=== PATIENT | female | born 1940 | race Caucasian/White ===

== ENCOUNTER → 2016-07-21 | Outpatient (CLI) | payer MEDICARE | END | disposition home or self-care (01) | LOC: CFH 13:25 | PROVIDERS: ATTEND Internal Medicine Cardiovascular Disease | DX: I08.3 Combined rheumatic disorders of mitral, aortic and tricuspid valves (principal); I37.1 Nonrheumatic pulmonary valve insufficiency; I51.7 Cardiomegaly; I65.23 Occlusion and stenosis of bilateral carotid arteries | CPT/HCPCS: 93306; 93880 ==

== ENCOUNTER 2018-09-27 12:44 | Outpatient (CLI) | payer MEDICARE | END 2018-09-27 23:59 | disposition home or self-care (01) | LOC: CVU 12:44 | PROVIDERS: ATTEND Internal Medicine Cardiovascular Disease | DX: I08.8 Other rheumatic multiple valve diseases (principal); I65.23 Occlusion and stenosis of bilateral carotid arteries; I10 Essential (primary) hypertension; R09.89 Other specified symptoms and signs involving the circulatory and respiratory systems | CPT/HCPCS: 93306; 93880 ==

== ENCOUNTER 2019-02-18 17:34 | Inpatient (IN) | payer MEDICARE ==
[~2019-02-18] VITALS: Ht 170.2 cm; Wt 61.0 kg
[2019-02-18] MEDS ORDERED: ACETAMINOPHEN 500 MG TABLET PO ONE (18:30)
[2019-02-18 18:37] LABS: BASOPHILS # (AUTO) 0.07 x10^3/uL (0-0.1); BASOPHILS % (AUTO) 1 % (0-1); EOSINOPHILS % (AUTO) 0 % (1-7); LYMPHOCYTES # (AUTO) 1.06 x10^3/uL (1-3.4); LYMPHOCYTES % (AUTO) 9 % (22-44); MD NO; MEAN CORPUSCULAR HEMOGLOBIN 29.4 pg (27.0-34.8); MEAN CORPUSCULAR HGB CONC 33.5 g/dL (32.4-35.8); MEAN CORPUSCULAR VOLUME 87.8 fL (80-100); MEAN PLATELET VOLUME 8.3 fL (7.4-10.4); MONOCYTES # (AUTO) 0.87 x10^3/uL (0.2-0.8); MONOCYTES % (AUTO) 7 % (2-9); NEUTROPHILS # (AUTO) 10.01 x10^3/uL (1.8-6.8); NEUTROPHILS % (AUTO) 83 % (42-75); PLATELET COUNT 117 x10^3/uL (130-400); RED BLOOD COUNT 4.39 x10^6/uL (3.82-5.3); RED CELL DISTRIBUTION WIDTH 13.2 % (9.6-15.2)
[2019-02-18] MEDS ORDERED: ACETAMINOPHEN 500 MG TABLET ONE (18:44)
[2019-02-18 18:46] LABS: ALBUMIN 3.3 g/dL (3.4-5.0); ANION GAP 7 mmol/L (5-15); CALCIUM 8.5 mg/dL (8.5-10.1); CHLORIDE 108 mmol/L (98-107); CREATININE 0.94 mg/dL (0.55-1.02)
--- NOTE | 2019-02-18 18:48 | NUR ---
TASK RN: PT MEDICATED ORDERED FOR PAIN. PT TRASNPORTED TO IMAGING VIA GURNEY.
--- NOTE | 2019-02-18 19:02 | NUR ---
PT TO IMAGING.
--- NOTE | 2019-02-18 19:16 | NUR ---
PT HERE S/P [facility]GLF TODAY AT 1030. PER FAMILY, PT LANDED ON L SIDE AND C/O L HIP PAIN. L LEG EXTERNALLY ROTATED AND BENT AT THE KNEE. PT HAS HX ALZHEIMERS SO PT IS AT BASELINE NEURO STATUS. PT DRESSED IN GOWN AND ATTACHED TO MONITOR. CALL LIGHT WITHIN REACH, ROOM AIR. NAD, FAMILY AT BEDSIDE.
--- NOTE | 2019-02-18 19:18 | NUR ---
PT BACK FROM IMAGING.
--- NOTE | 2019-02-18 19:36 | NUR ---
PT ASSISTED ON AND OFF BEDPAN, URINE SENT
--- NOTE | 2019-02-18 20:00 | NUR ---
MD AT BEDSIDE TO DISCUSS POC, PLAN TO ADMIT. PIV ESTABLISHED BY THIS RN.
--- NOTE | 2019-02-18 20:21 | NUR ---
REPORT GIVEN TO NEEL MARSH. PT TO TRANSFER TO INPATIENT STATUS.
[2019-02-18] MEDS ORDERED: LISINOPRIL (20:30)
[2019-02-18] MEDS ORDERED: ATORVASTATIN (20:30)
[2019-02-18] MEDS ORDERED: SYNTHROID (20:30)
[2019-02-18] MEDS ORDERED: DONEPEZIL (20:30)
[2019-02-18] MEDS ORDERED: PRAZOSIN (20:30)
[2019-02-18] MEDS ORDERED: MORPHINE SULFATE 4 MG/ML, 1ML IVPush PRN (20:30)
--- NOTE | 2019-02-18 20:30 | NUR ---
MED REC COMPLETED BY THIS RN.
[2019-02-18 20:52] VITALS: BP 180/77
[2019-02-18] MEDS ORDERED: HALOPERIDOL 1 MG TABLET PO PRN (22:00)
[2019-02-18] MEDS ORDERED: ONDANSETRON 2MG/ML, 2ML IVPush PRN (22:00)
[2019-02-18] MEDS ORDERED: morphine SULFATE 10 MG/ML, 1ML IVPush PRN (22:00)
[2019-02-18] MEDS ORDERED: LIDODERM 5% PATCH TD PRN (22:00)
[2019-02-18] MEDS ORDERED: BISACODYL 10 MG SUPP PR PRN (22:00)
[2019-02-18] MEDS: D5%-0.45NACL+KCL 20MEQ 1,000 ML IV SCH (22:30)
[2019-02-18] MEDS: ACETAMINOPHEN 325 MG TABLET PO PRN (22:51)
[2019-02-19 05:03] VITALS: BP 174/78
[2019-02-19 05:34] LABS: BASOPHILS # (AUTO) 0.04 x10^3/uL (0-0.1); BASOPHILS % (AUTO) 0 % (0-1); EOSINOPHILS # (AUTO) 0.21 x10^3/uL (0-0.4); EOSINOPHILS % (AUTO) 2 % (1-7); LYMPHOCYTES # (AUTO) 1.71 x10^3/uL (1-3.4); LYMPHOCYTES % (AUTO) 18 % (22-44); MD NO; MEAN CORPUSCULAR HEMOGLOBIN 28.6 pg (27.0-34.8); MEAN CORPUSCULAR HGB CONC 33.1 g/dL (32.4-35.8); MEAN CORPUSCULAR VOLUME 86.3 fL (80-100); MEAN PLATELET VOLUME 8.5 fL (7.4-10.4); MONOCYTES # (AUTO) 0.63 x10^3/uL (0.2-0.8); MONOCYTES % (AUTO) 7 % (2-9); NEUTROPHILS # (AUTO) 6.71 x10^3/uL (1.8-6.8); NEUTROPHILS % (AUTO) 72 % (42-75); PLATELET COUNT 107 x10^3/uL (130-400); RED BLOOD COUNT 4.53 x10^6/uL (3.82-5.3); RED CELL DISTRIBUTION WIDTH 13.3 % (9.6-15.2)
[2019-02-19 05:40] LABS: ANION GAP 5 mmol/L (5-15); CALCIUM 8.3 mg/dL (8.5-10.1); CHLORIDE 108 mmol/L (98-107); CREATININE 0.78 mg/dL (0.55-1.02)
[2019-02-19 05:42] LABS: INTERNATIONAL NORMALIZED RATIO 1.31 (0.93-1.1); PROTHROMBIN TIME 13.6 Seconds (9.6-11.5)
[2019-02-19] MEDS: ACETAMINOPHEN 325 MG TABLET PO PRN ×3 (05:49→15:12)
[2019-02-19] MEDS: METOPROLOL SUCCINATE 25 MG TAB.ER.24H PO SCH (05:49)
[2019-02-19] MEDS: LEVOTHYROXINE 200 MCG TABLET PO SCH (05:49)
[2019-02-19] MEDS: INSULIN LISPRO 100 UNITS/ML, PEN SQ-INSULIN SCH ×4 (06:28→23:23)
[2019-02-19 07:29] VITALS: BP 178/74
[2019-02-19] MEDS: hydrALAzine 20 MG/ML, 1ML IVPush PRN (08:09)
[2019-02-19] MEDS: PAROXETINE 10 MG TABLET PO SCH (08:10)
[2019-02-19] MEDS: ATORVASTATIN 80 MG TABLET PO SCH (08:10)
[2019-02-19] MEDS: LISINOPRIL 20 MG TABLET PO SCH (08:10)
[2019-02-19 08:30] VITALS: BP 155/65
[2019-02-19] MEDS: D5%-0.45NACL+KCL 20MEQ 1,000 ML IV SCH ×2 (09:40→23:06)
[2019-02-19] MEDS ORDERED: POTASSIUM CHLORIDE 20 MEQ TAB.ER.PRT PO ONE (10:30)
[2019-02-19 14:18] VITALS: BP 158/75
[2019-02-19] MEDS ORDERED: VANCOMYCIN 1,000 MG ONE (18:20)
[2019-02-19] MEDS ORDERED: FENTANYL PF 250 MCG/5ML ONE (18:41)
[2019-02-19] MEDS ORDERED: HYDROmorphone 2 MG/ML, 1ML IVPush PRN (19:00)
[2019-02-19] MEDS ORDERED: MORPHINE SULFATE 4 MG/ML, 1ML IVPush PRN (19:00)
[2019-02-19] MEDS ORDERED: MEPERIDINE/PF 25MG/ML,1ML IVPush PRN (19:00)
[2019-02-19] MEDS ORDERED: PROMETHAZINE 25 MG/ML, 1ML IV PRN (19:00)
[2019-02-19] MEDS ORDERED: FENTANYL PF 100 MCG/2ML IV PRN (19:00)
[2019-02-19] MEDS ORDERED: OXYcodone 5 MG/5 ML ORAL.SOL UDC PO PRN (19:00)
[2019-02-19] MEDS ORDERED: HALOPERIDOL 5 MG/ML IV PRN (19:00)
[2019-02-19] MEDS ORDERED: LABETALOL 5 MG/ML SYR. (IV ONLY) IV PRN (19:00)
[2019-02-19] MEDS ORDERED: HYDROcodone/APAP 7.5-325MG/15ML UDC PO PRN (19:00)
[2019-02-19] MEDS ORDERED: hydrALAzine 20 MG/ML, 1ML IV PRN (19:00)
[2019-02-19] MEDS ORDERED: ONDANSETRON 2MG/ML, 2ML ONE (19:02)
[2019-02-19] MEDS ORDERED: ROCURONIUM 10MG/ML,5ML ONE (19:02)
[2019-02-19] MEDS ORDERED: PROPOFOL 10 MG/ML, 20ML ONE (19:02)
[2019-02-19] MEDS ORDERED: PHENYLEPHRINE 10 MG/ML ONE (19:02)
[2019-02-19] MEDS ORDERED: SUGAMMADEX 200 MG/2 ML IVPush ONE (20:24)
[2019-02-19] MEDS ORDERED: OXYcodone 5 MG/5 ML ORAL.SOL UDC ONE (20:57)
[2019-02-19] MEDS: DONEPEZIL 10 MG TABLET PO SCH (22:00)
[2019-02-20 02:48] VITALS: BP 156/82
[2019-02-20] MEDS: CEFAZOLIN PMX 2GM/50ML 50 ML IVPB SCH ×2 (04:43→12:05)
[2019-02-20] MEDS: HALOPERIDOL 5 MG/ML IM PRN (05:36)
[2019-02-20] MEDS: LEVOTHYROXINE 200 MCG TABLET PO SCH ×2 (06:22→06:42)
[2019-02-20] MEDS: METOPROLOL SUCCINATE 25 MG TAB.ER.24H PO SCH ×2 (06:22→06:42)
[2019-02-20] MEDS: INSULIN LISPRO 100 UNITS/ML, PEN SQ-INSULIN SCH ×4 (07:39→20:23)
[2019-02-20 08:11] VITALS: BP 138/69
[2019-02-20 09:01] LABS: BASOPHILS # (AUTO) 0.09 x10^3/uL (0-0.1); BASOPHILS % (AUTO) 1 % (0-1); EOSINOPHILS # (AUTO) 0.06 x10^3/uL (0-0.4); EOSINOPHILS % (AUTO) 1 % (1-7); LYMPHOCYTES # (AUTO) 1.09 x10^3/uL (1-3.4); LYMPHOCYTES % (AUTO) 11 % (22-44); MD NO; MEAN CORPUSCULAR HEMOGLOBIN 28.6 pg (27.0-34.8); MEAN CORPUSCULAR HGB CONC 32.5 g/dL (32.4-35.8); MEAN CORPUSCULAR VOLUME 87.8 fL (80-100); MEAN PLATELET VOLUME 8.4 fL (7.4-10.4); MONOCYTES # (AUTO) 0.64 x10^3/uL (0.2-0.8); MONOCYTES % (AUTO) 6 % (2-9); NEUTROPHILS # (AUTO) 8.06 x10^3/uL (1.8-6.8); NEUTROPHILS % (AUTO) 81 % (42-75); PLATELET COUNT 101 x10^3/uL (130-400); RED BLOOD COUNT 3.96 x10^6/uL (3.82-5.3); RED CELL DISTRIBUTION WIDTH 13.5 % (9.6-15.2)
[2019-02-20] MEDS: PAROXETINE 10 MG TABLET PO SCH (09:14)
[2019-02-20] MEDS: MEMANTINE HCL 28 MG PO SCH (09:14)
[2019-02-20] MEDS: ATORVASTATIN 80 MG TABLET PO SCH (09:14)
[2019-02-20] MEDS: LISINOPRIL 20 MG TABLET PO SCH (09:14)
[2019-02-20 09:21] LABS: ANION GAP 5 mmol/L (5-15); CALCIUM 8.1 mg/dL (8.5-10.1); CHLORIDE 108 mmol/L (98-107)
[2019-02-20 09:22] LABS: CREATININE 0.79 mg/dL (0.55-1.02)
[2019-02-20] MEDS: D5%-0.45NACL+KCL 20MEQ 1,000 ML IV SCH ×2 (09:34→21:17)
[2019-02-20 14:25] VITALS: BP 151/77
[2019-02-20 19:40] VITALS: BP 175/79
[2019-02-20] MEDS: DONEPEZIL 10 MG TABLET PO SCH (20:20)
[2019-02-20] MEDS: ACETAMINOPHEN 325 MG TABLET PO PRN (20:20)
[2019-02-21 00:41] VITALS: BP 173/85
[2019-02-21] MEDS: hydrALAzine 20 MG/ML, 1ML IVPush PRN (00:49)
[2019-02-21 01:30] VITALS: BP 148/76
[2019-02-21 05:23] LABS: BASOPHILS # (AUTO) 0.01 x10^3/uL (0-0.1); BASOPHILS % (AUTO) 0 % (0-1); EOSINOPHILS # (AUTO) 0.14 x10^3/uL (0-0.4); EOSINOPHILS % (AUTO) 1 % (1-7); LYMPHOCYTES # (AUTO) 1.41 x10^3/uL (1-3.4); LYMPHOCYTES % (AUTO) 13 % (22-44); MD NO; MEAN CORPUSCULAR HEMOGLOBIN 29.5 pg (27.0-34.8); MEAN CORPUSCULAR HGB CONC 33.7 g/dL (32.4-35.8); MEAN CORPUSCULAR VOLUME 87.6 fL (80-100); MEAN PLATELET VOLUME 8.6 fL (7.4-10.4); MONOCYTES # (AUTO) 0.67 x10^3/uL (0.2-0.8); MONOCYTES % (AUTO) 6 % (2-9); NEUTROPHILS # (AUTO) 8.54 x10^3/uL (1.8-6.8); NEUTROPHILS % (AUTO) 79 % (42-75); PLATELET COUNT 118 x10^3/uL (130-400); RED BLOOD COUNT 3.74 x10^6/uL (3.82-5.3); RED CELL DISTRIBUTION WIDTH 13.2 % (9.6-15.2)
[2019-02-21 05:34] LABS: ANION GAP 3 mmol/L (5-15); CALCIUM 8.1 mg/dL (8.5-10.1); CHLORIDE 105 mmol/L (98-107); CREATININE 0.58 mg/dL (0.55-1.02)
[2019-02-21] MEDS: LEVOTHYROXINE 200 MCG TABLET PO SCH (05:48)
[2019-02-21] MEDS: METOPROLOL SUCCINATE 25 MG TAB.ER.24H PO SCH (05:48)
[2019-02-21] MEDS: INSULIN LISPRO 100 UNITS/ML, PEN SQ-INSULIN SCH ×2 (07:00→11:00)
[2019-02-21 07:20] VITALS: BP 127/71
[2019-02-21] MEDS: LISINOPRIL 20 MG TABLET PO SCH (08:36)
[2019-02-21] MEDS: ATORVASTATIN 80 MG TABLET PO SCH (08:36)
[2019-02-21] MEDS: PAROXETINE 10 MG TABLET PO SCH (08:36)
[2019-02-21] MEDS: MEMANTINE HCL 28 MG PO SCH (08:38)
[2019-02-21] MEDS: D5%-0.45NACL+KCL 20MEQ 1,000 ML IV SCH (08:40)
[2019-02-21] MEDS: ACETAMINOPHEN 325 MG TABLET PO PRN (08:46)
[2019-02-21 12:49] VITALS: BP 114/65
[2019-02-21] MEDS ORDERED: HALOPERIDOL 5 MG/ML IM PRN (14:00)
[2019-02-21] MEDS: HEPARIN 5,000 UNITS/ML, 1ML SQ SCH ×2 (14:32→20:00)
[2019-02-21] MEDS: HALOPERIDOL 5 MG/ML IM PRN (14:33)
[2019-02-21] MEDS: TAMSULOSIN 0.4 MG CAP.ER.24H PO SCH (16:57)
[2019-02-21 18:03] LABS: MICROSCOPIC NOT IND
[2019-02-21 18:30] LABS: CULTURE INDICATED? NO
[2019-02-21 19:25] VITALS: BP 128/72
[2019-02-21] MEDS ORDERED: FLU VACCINE PER PHARMACY IM ONE (20:00)
[2019-02-21] MEDS ORDERED: FLU VACC QS2019-20 36MOS UP/PF 0.5 ML IM-VACC ONE (20:00)
[2019-02-21] MEDS: DONEPEZIL 10 MG TABLET PO SCH (21:00)
[2019-02-22] MEDS: HALOPERIDOL 2 MG TABLET PO PRN ×2 (00:24→06:25)
[2019-02-22 02:00] VITALS: BP 111/67
[2019-02-22] MEDS: HEPARIN 5,000 UNITS/ML, 1ML SQ SCH ×3 (03:55→20:11)
[2019-02-22] MEDS: LEVOTHYROXINE 200 MCG TABLET PO SCH (06:25)
[2019-02-22] MEDS: METOPROLOL SUCCINATE 25 MG TAB.ER.24H PO SCH (06:26)
[2019-02-22 08:22] VITALS: BP 124/76
[2019-02-22 08:33] LABS: BASOPHILS # (AUTO) 0.02 x10^3/uL (0-0.1); BASOPHILS % (AUTO) 0 % (0-1); EOSINOPHILS # (AUTO) 0.05 x10^3/uL (0-0.4); EOSINOPHILS % (AUTO) 1 % (1-7); LYMPHOCYTES # (AUTO) 1.22 x10^3/uL (1-3.4); LYMPHOCYTES % (AUTO) 15 % (22-44); MD NO; MEAN CORPUSCULAR HEMOGLOBIN 28.8 pg (27.0-34.8); MEAN CORPUSCULAR HGB CONC 33.4 g/dL (32.4-35.8); MEAN CORPUSCULAR VOLUME 86.3 fL (80-100); MEAN PLATELET VOLUME 8.1 fL (7.4-10.4); MONOCYTES # (AUTO) 0.57 x10^3/uL (0.2-0.8); MONOCYTES % (AUTO) 7 % (2-9); NEUTROPHILS # (AUTO) 6.55 x10^3/uL (1.8-6.8); NEUTROPHILS % (AUTO) 78 % (42-75); PLATELET COUNT 144 x10^3/uL (130-400); RED BLOOD COUNT 3.47 x10^6/uL (3.82-5.3); RED CELL DISTRIBUTION WIDTH 12.9 % (9.6-15.2)
[2019-02-22 08:40] LABS: ANION GAP 7 mmol/L (5-15); CALCIUM 8.3 mg/dL (8.5-10.1); CHLORIDE 101 mmol/L (98-107)
[2019-02-22 08:41] LABS: CREATININE 0.52 mg/dL (0.55-1.02)
[2019-02-22] MEDS: INSULIN LISPRO 100 UNITS/ML, PEN SQ-INSULIN SCH ×2 (09:01→09:02)
[2019-02-22] MEDS: MEMANTINE HCL 28 MG PO SCH (09:07)
[2019-02-22] MEDS: ATORVASTATIN 80 MG TABLET PO SCH (09:08)
[2019-02-22] MEDS: PAROXETINE 10 MG TABLET PO SCH (09:08)
[2019-02-22] MEDS: TAMSULOSIN 0.4 MG CAP.ER.24H PO SCH (09:09)
[2019-02-22] MEDS: LISINOPRIL 20 MG TABLET PO SCH (09:09)
[2019-02-22] MEDS ORDERED: BISACODYL 10 MG SUPP PR PRN ×2 (10:30)
[2019-02-22] MEDS ORDERED: LACTULOSE 20 GM/30 ML UDC PO PRN (10:30)
[2019-02-22] MEDS ORDERED: INSTRUCTION SEE COMMENTS XX PRN ×2 (10:30→11:11)
[2019-02-22] MEDS ORDERED: POLYETHYLENE GLYCOL 17 GM PACKET PO PRN (10:30)
[2019-02-22] MEDS ORDERED: [UNRECOGNIZED DRUG - REMARK] MC PRN ×2 (10:30→11:11)
[2019-02-22] MEDS ORDERED: MAGNESIUM CITRATE 300ML ORAL SOL PO PRN ×3 (10:30→11:30)
[2019-02-22] MEDS ORDERED: QUETIAPINE 25MG TABLET PO PRN (10:30)
[2019-02-22 14:02] VITALS: BP 115/67
[2019-02-22 19:34] VITALS: BP 107/62
[2019-02-22] MEDS: DONEPEZIL 10 MG TABLET PO SCH (20:10)
[2019-02-22] MEDS ORDERED: MELATONIN 3 MG TABLET PO SCH (21:00)
[2019-02-22] MEDS ORDERED: SENNA/DOCUSATE TABLET PO SCH (21:00)
[2019-02-23] MEDS: HEPARIN 5,000 UNITS/ML, 1ML SQ SCH ×3 (04:00→13:11)
[2019-02-23] MEDS: LEVOTHYROXINE 200 MCG TABLET PO SCH (05:48)
[2019-02-23] MEDS: METOPROLOL SUCCINATE 25 MG TAB.ER.24H PO SCH (05:49)
[2019-02-23 05:51] VITALS: BP 127/67
[2019-02-23 07:30] VITALS: BP 145/72
[2019-02-23] MEDS ORDERED: DOCUSATE 100 MG CAPSULE PO SCH (09:00)
[2019-02-23] MEDS ORDERED: FLU VACC QS2019-20 36MOS UP/PF 0.5 ML IM-VACC ONE (09:30)
[2019-02-23] MEDS: PAROXETINE 10 MG TABLET PO SCH (09:36)
[2019-02-23] MEDS: ACETAMINOPHEN 325 MG TABLET PO PRN (09:36)
[2019-02-23] MEDS: MEMANTINE HCL 28 MG PO SCH (09:36)
[2019-02-23] MEDS: TAMSULOSIN 0.4 MG CAP.ER.24H PO SCH (09:36)
[2019-02-23] MEDS: LISINOPRIL 20 MG TABLET PO SCH (09:36)
[2019-02-23] MEDS: ATORVASTATIN 80 MG TABLET PO SCH (09:36)
[2019-02-23] MEDS: INSULIN LISPRO 100 UNITS/ML, PEN SQ-INSULIN SCH (09:37)
[2019-02-23] MEDS ORDERED: RISPERIDONE 0.5 MG TABLET PO SCH (10:45)
[2019-02-23 13:55] VITALS: BP 95/60
[2019-02-23] MEDS ORDERED: MEMANTINE HCL PO (17:03)
[2019-02-23] MEDS ORDERED: POLY17PO5 PO (17:03)
[2019-02-23] MEDS ORDERED: PARO10TA3 PO (17:03)
[2019-02-23] MEDS ORDERED: QUET25TA7 PO (17:03)
[2019-02-23] MEDS ORDERED: DOCU-131 PO (17:03)
[2019-02-23] MEDS ORDERED: RISP0.5T24 PO (17:03)
[2019-02-23] MEDS ORDERED: MELA3TAB56 PO (17:03)
[2019-02-23] MEDS ORDERED: ACET325T26 PO (17:03)
[2019-02-23] MEDS ORDERED: HALO2TAB PO (17:03)
[2019-02-23] MEDS ORDERED: METO25TA91 PO (17:03)
[2019-02-23] MEDS ORDERED: DONE10TA56 PO (17:03)
[2019-02-23] MEDS ORDERED: LISI-170 PO (17:03)
[2019-02-23] MEDS ORDERED: ATOR-2 PO (17:03)
[2019-02-23] MEDS ORDERED: LIDO700A20 TD (17:03)
[2019-02-23] MEDS ORDERED: INSU100I11 SQ-INSULIN (17:03)
[2019-02-23] MEDS ORDERED: BISA10SU4 PR (17:03)
[2019-02-23] MEDS ORDERED: SENN-193 PO (17:03)
[2019-02-23] MEDS ORDERED: HEPA50002 SQ (17:03)
[2019-02-23] MEDS ORDERED: LEVO200T PO (17:03)
[2019-02-23 19:45] VITALS: BP 148/79
== END 2019-02-23 22:36 | DRG 469 ==
LOC: ED 19:44 → 4NE 19:49 → ED 19:52
PROVIDERS: ADMIT Internal Medicine; ATTEND Internal Medicine
PROC: 0SRS0J9 Replacement of Left Hip Joint, Femoral Surface with Synthetic Substitute, Cemented, Open Approach (ICD-10-PCS; principal; 2019-02-19 18:00)
PROC: 0T9B70Z Drainage of Bladder with Drainage Device, Via Natural or Artificial Opening (ICD-10-PCS; 2019-02-21)
DX: S72.002A Fracture of unspecified part of neck of left femur, initial encounter for closed fracture (principal); R53.2 Functional quadriplegia; N39.0 Urinary tract infection, site not specified; F03.91 Unspecified dementia, unspecified severity, with behavioral disturbance; D69.6 Thrombocytopenia, unspecified; E11.9 Type 2 diabetes mellitus without complications; E78.5 Hyperlipidemia, unspecified; E87.6 Hypokalemia; I16.0 Hypertensive urgency; I10 Essential (primary) hypertension; Z88.0 Allergy status to penicillin; W01.0XXA Fall on same level from slipping, tripping and stumbling without subsequent striking against object, initial encounter; Y93.01 Activity, walking, marching and hiking; Y92.009 Unspecified place in unspecified non-institutional (private) residence as the place of occurrence of the external cause; Y99.8 Other external cause status; E89.0 Postprocedural hypothyroidism; M41.9 Scoliosis, unspecified; Z66 Do not resuscitate; Z80.3 Family history of malignant neoplasm of breast; Z80.41 Family history of malignant neoplasm of ovary; Z85.850 Personal history of malignant neoplasm of thyroid; Z90.710 Acquired absence of both cervix and uterus
CPT/HCPCS: 36415; 72100; 72170; 80048; 81003; 82040; 82962; 85025; 85610; 93005; C1713; G0378; J0690; J1644; J2405; J2704; J3010; J3370; C1762; C1776; J0360; J1630; J2370; J3480

== ENCOUNTER 2019-02-23 18:17 | Inpatient (IN) | payer MEDICARE ==
[~2019-02-23] VITALS: Ht 167.6 cm; Wt 58.4 kg
[~2019-02-23 18:17] MED LIST: ACET325T26 PO; ATOR-2 PO; ATORVASTATIN; BISA10SU4 PR; DOCU-131 PO; DONE10TA56 PO; DONEPEZIL; HALO2TAB PO; HEPA50002 SQ; INSU100I11 SQ-INSULIN; LEVO200T PO; LIDO700A20 TD; LISI-170 PO; LISINOPRIL; MELA3TAB56 PO; MEMANTINE HCL PO; METO25TA91 PO; PARO10TA3 PO; POLY17PO5 PO; PRAZOSIN; QUET25TA7 PO; RISP0.5T24 PO; SENN-193 PO; SYNTHROID
[2019-02-23] MEDS ORDERED: DOCUSATE 100 MG CAPSULE PO PRN (18:30)
[2019-02-23] MEDS ORDERED: ONDANSETRON ODT 4 MG PO PRN (18:30)
[2019-02-23] MEDS ORDERED: LORazepam 1MG TABLET PO PRN (18:30)
[2019-02-23] MEDS ORDERED: ACETAMINOPHEN 325 MG TABLET PO PRN (18:30)
[2019-02-23] MEDS ORDERED: BISACODYL 10 MG SUPP PR PRN (18:30)
[2019-02-23 20:30] VITALS: BP 130/70
[2019-02-23] MEDS ORDERED: PLEASE ENTER HEIGHT AND WEIGHT MC SCH (21:30)
[2019-02-23 22:05] VITALS: BP 130/70
[2019-02-24] MEDS: DIVALPROEX 125 MG CAP.SPRINK PO SCH ×3 (00:59→21:22)
[2019-02-24] MEDS: MELATONIN 3 MG TABLET PO SCH ×2 (00:59→21:22)
[2019-02-24] MEDS: DONEPEZIL 10 MG TABLET PO SCH ×2 (00:59→21:22)
[2019-02-24] MEDS: RISPERIDONE 0.5 MG TABLET PO SCH ×3 (00:59→21:23)
[2019-02-24 05:54] LABS: CHOL/HDL RATIO 3.7; LDL/HDL RATIO 2.2 (0.5-3.0)
[2019-02-24] MEDS ORDERED: FLU VACC QS2019-20 36MOS UP/PF 0.5 ML IM-VACC ONE (06:00)
[2019-02-24] MEDS: LEVOTHYROXINE 200 MCG TABLET PO SCH (06:18)
[2019-02-24] MEDS: METOPROLOL SUCCINATE 25 MG TAB.ER.24H PO SCH (06:18)
[2019-02-24 07:27] VITALS: BP 140/80
[2019-02-24] MEDS: INSULIN LISPRO 100 UNITS/ML, PEN SQ-INSULIN SCH (07:30)
[2019-02-24] MEDS ORDERED: MEMANTINE 10MG TABLET PO SCH (09:00)
[2019-02-24] MEDS: NAMENDA 28 MG PO SCH (09:00)
[2019-02-24] MEDS: HEPARIN 5,000 UNITS/ML, 1ML SQ SCH ×2 (09:57→17:47)
[2019-02-24] MEDS: LISINOPRIL 20 MG TABLET PO SCH (10:17)
[2019-02-24] MEDS: PAROXETINE 10 MG TABLET PO SCH (10:19)
--- NOTE | 2019-02-24 13:18 | NUR ---
REC GROUND/NTL; ORANGE SHEET WITH DIET RECS AND SWALLOW STRATEGIES POSTED AT BEDSIDE. Addendum: 02/24/19 at 1319 by Angelique CALIXTO Amended: Links added.
[2019-02-24] MEDS ORDERED: hydrALAzine 20 MG/ML, 1ML IV PRN (14:30)
[2019-02-24 19:15] VITALS: BP 107/65
[2019-02-24] MEDS: ATORVASTATIN 80 MG TABLET PO SCH (21:23)
[2019-02-25] MEDS: HEPARIN 5,000 UNITS/ML, 1ML SQ SCH ×4 (01:13→18:30)
[2019-02-25 06:05] VITALS: BP 100/62
[2019-02-25] MEDS: METOPROLOL SUCCINATE 25 MG TAB.ER.24H PO SCH (06:05)
[2019-02-25] MEDS: LEVOTHYROXINE 200 MCG TABLET PO SCH (06:15)
[2019-02-25 07:12] VITALS: BP 102/60
[2019-02-25] MEDS: INSULIN LISPRO 100 UNITS/ML, PEN SQ-INSULIN SCH (07:30)
[2019-02-25] MEDS: NAMENDA 28 MG PO SCH (09:00)
[2019-02-25] MEDS: DIVALPROEX 125 MG CAP.SPRINK PO SCH ×2 (10:23→20:13)
[2019-02-25] MEDS: PAROXETINE 10 MG TABLET PO SCH (10:26)
[2019-02-25] MEDS: RISPERIDONE 0.5 MG TABLET PO SCH ×2 (10:26→20:13)
[2019-02-25] MEDS: LISINOPRIL 20 MG TABLET PO SCH (10:27)
[2019-02-25 19:14] VITALS: BP 109/65
[2019-02-25] MEDS: MELATONIN 3 MG TABLET PO SCH (20:13)
[2019-02-25] MEDS: DONEPEZIL 10 MG TABLET PO SCH (20:13)
[2019-02-25] MEDS: ATORVASTATIN 80 MG TABLET PO SCH (21:01)
[2019-02-26] MEDS: HEPARIN 5,000 UNITS/ML, 1ML SQ SCH ×3 (01:01→17:18)
[2019-02-26] MEDS: METOPROLOL SUCCINATE 25 MG TAB.ER.24H PO SCH (06:13)
[2019-02-26] MEDS: LEVOTHYROXINE 200 MCG TABLET PO SCH (06:13)
[2019-02-26 07:28] VITALS: BP_SYST 116; BP_SYST 126; BP_DIAS 69; BP_DIAS 76
[2019-02-26] MEDS: INSULIN LISPRO 100 UNITS/ML, PEN SQ-INSULIN SCH (07:30)
[2019-02-26] MEDS: NAMENDA 28 MG PO SCH (09:00)
[2019-02-26] MEDS: DIVALPROEX 125 MG CAP.SPRINK PO SCH (09:14)
[2019-02-26] MEDS: ATORVASTATIN 80 MG TABLET PO SCH (09:14)
[2019-02-26] MEDS: LISINOPRIL 20 MG TABLET PO SCH (09:15)
[2019-02-26] MEDS: PAROXETINE 10 MG TABLET PO SCH (09:15)
[2019-02-26] MEDS ORDERED: MELATONIN 3 MG TABLET PO PRN (14:00)
[2019-02-26 19:20] VITALS: BP 99/62
[2019-02-26] MEDS: DONEPEZIL 10 MG TABLET PO SCH (20:11)
[2019-02-26] MEDS: RISPERIDONE 0.5 MG TABLET PO SCH (20:11)
[2019-02-26] MEDS ORDERED: DIVALPROEX 125 MG CAP.SPRINK PO SCH (21:00)
[2019-02-27] MEDS: HEPARIN 5,000 UNITS/ML, 1ML SQ SCH ×3 (01:02→17:06)
[2019-02-27] MEDS: METOPROLOL SUCCINATE 25 MG TAB.ER.24H PO SCH (05:54)
[2019-02-27] MEDS: LEVOTHYROXINE 200 MCG TABLET PO SCH (05:54)
[2019-02-27 07:16] VITALS: BP 154/75
[2019-02-27] MEDS: INSULIN LISPRO 100 UNITS/ML, PEN SQ-INSULIN SCH (08:04)
[2019-02-27] MEDS: ATORVASTATIN 80 MG TABLET PO SCH (08:55)
[2019-02-27] MEDS: LISINOPRIL 20 MG TABLET PO SCH (08:56)
[2019-02-27] MEDS: NAMENDA 28 MG PO SCH (09:00)
--- NOTE | 2019-02-27 11:15 | NUR ---
REC: Ground/thins with 1:1; orange sheet updated in patient's room Addendum: 02/27/19 at 1116 by Jennifer CALIXTO Amended: Links added.
[2019-02-27] MEDS: DIVALPROEX 125 MG CAP.SPRINK PO SCH (20:29)
[2019-02-27] MEDS: DONEPEZIL 10 MG TABLET PO SCH (20:29)
[2019-02-27] MEDS: RISPERIDONE 0.5 MG TABLET PO SCH (20:29)
[2019-02-28] MEDS: HEPARIN 5,000 UNITS/ML, 1ML SQ SCH ×3 (01:39→16:34)
[2019-02-28] MEDS: LEVOTHYROXINE 200 MCG TABLET PO SCH (06:06)
[2019-02-28] MEDS: METOPROLOL SUCCINATE 25 MG TAB.ER.24H PO SCH (06:06)
[2019-02-28 07:29] VITALS: BP 136/69
[2019-02-28] MEDS: INSULIN LISPRO 100 UNITS/ML, PEN SQ-INSULIN SCH (07:30)
[2019-02-28] MEDS: ATORVASTATIN 80 MG TABLET PO SCH (08:59)
[2019-02-28] MEDS: LISINOPRIL 20 MG TABLET PO SCH (09:00)
[2019-02-28] MEDS: NAMENDA 28 MG PO SCH (09:00)
[2019-02-28] MEDS ORDERED: LISI-170 PO (16:17)
[2019-02-28] MEDS ORDERED: METO25TA91 PO (16:17)
[2019-02-28] MEDS ORDERED: DONE10TA56 PO (16:17)
[2019-02-28] MEDS ORDERED: LEVO200T PO (16:17)
[2019-02-28] MEDS ORDERED: ATOR-2 PO (16:17)
[2019-02-28] MEDS ORDERED: MELA3TAB56 PO (16:17)
[2019-02-28] MEDS ORDERED: NAMENDA 28 MG PO (16:17)
[2019-02-28] MEDS ORDERED: RISP0.5T24 PO (16:17)
[2019-02-28] MEDS ORDERED: DIVA125C2 PO (16:17)
[2019-02-28] MEDS: POLYETHYLENE GLYCOL 17 GM PACKET PO PRN (18:43)
[2019-02-28 19:35] VITALS: BP 146/75
[2019-02-28] MEDS: DONEPEZIL 10 MG TABLET PO SCH (20:21)
[2019-02-28] MEDS: DIVALPROEX 125 MG CAP.SPRINK PO SCH (20:21)
[2019-02-28] MEDS: RISPERIDONE 0.5 MG TABLET PO SCH (20:21)
[2019-03-01] MEDS: HEPARIN 5,000 UNITS/ML, 1ML SQ SCH ×3 (01:36→16:26)
[2019-03-01] MEDS: LEVOTHYROXINE 200 MCG TABLET PO SCH (05:44)
[2019-03-01] MEDS: METOPROLOL SUCCINATE 25 MG TAB.ER.24H PO SCH (05:44)
[2019-03-01 07:20] VITALS: BP 165/66
[2019-03-01] MEDS: INSULIN LISPRO 100 UNITS/ML, PEN SQ-INSULIN SCH (07:30)
[2019-03-01] MEDS: ATORVASTATIN 80 MG TABLET PO SCH (08:37)
[2019-03-01] MEDS: NAMENDA 28 MG PO SCH (08:38)
[2019-03-01] MEDS: LISINOPRIL 20 MG TABLET PO SCH (08:38)
[2019-03-01] MEDS: POLYETHYLENE GLYCOL 17 GM PACKET PO PRN (08:41)
--- NOTE | 2019-03-01 14:24 | NUR ---
REC GROUND/NTL; ORANGE SHEET WITH DIET REC AND SWALLOW STRATEGIES POSTED AT BEDSIDE. Addendum: 03/01/19 at 1425 by Angelique CALIXTO Amended: Links added.
[2019-03-01 19:10] VITALS: BP 138/78
[2019-03-01] MEDS ORDERED: FLU VACC QS2019-20 36MOS UP/PF 0.5 ML IM-VACC ONE (20:00)
[2019-03-01] MEDS: DONEPEZIL 10 MG TABLET PO SCH (20:08)
[2019-03-01] MEDS: DIVALPROEX 125 MG CAP.SPRINK PO SCH (20:08)
[2019-03-01] MEDS: RISPERIDONE 0.5 MG TABLET PO SCH (20:08)
[2019-03-02] MEDS: HEPARIN 5,000 UNITS/ML, 1ML SQ SCH ×3 (00:51→17:42)
[2019-03-02] MEDS: LEVOTHYROXINE 200 MCG TABLET PO SCH (05:09)
[2019-03-02] MEDS: METOPROLOL SUCCINATE 25 MG TAB.ER.24H PO SCH (05:09)
[2019-03-02 07:30] VITALS: BP 121/65
[2019-03-02] MEDS: INSULIN LISPRO 100 UNITS/ML, PEN SQ-INSULIN SCH (07:30)
[2019-03-02] MEDS ORDERED: MEMANTINE 5MG TABLET ONE (08:43)
[2019-03-02] MEDS: ATORVASTATIN 80 MG TABLET PO SCH (08:50)
[2019-03-02] MEDS: LISINOPRIL 20 MG TABLET PO SCH (08:50)
[2019-03-02] MEDS: NAMENDA 28 MG PO SCH (08:51)
[2019-03-02 19:26] VITALS: BP 114/75
[2019-03-02] MEDS: DIVALPROEX 125 MG CAP.SPRINK PO SCH (20:18)
[2019-03-02] MEDS: RISPERIDONE 0.5 MG TABLET PO SCH (20:19)
[2019-03-02] MEDS: DONEPEZIL 10 MG TABLET PO SCH (20:19)
[2019-03-03] MEDS: HEPARIN 5,000 UNITS/ML, 1ML SQ SCH ×3 (00:54→17:09)
[2019-03-03] MEDS: LEVOTHYROXINE 200 MCG TABLET PO SCH (05:38)
[2019-03-03] MEDS: METOPROLOL SUCCINATE 25 MG TAB.ER.24H PO SCH (05:38)
[2019-03-03] MEDS: INSULIN LISPRO 100 UNITS/ML, PEN SQ-INSULIN SCH (07:30)
[2019-03-03 07:55] VITALS: BP 134/67
[2019-03-03] MEDS: NAMENDA 28 MG PO SCH (09:00)
[2019-03-03] MEDS: ATORVASTATIN 80 MG TABLET PO SCH (09:10)
[2019-03-03] MEDS: LISINOPRIL 20 MG TABLET PO SCH (09:11)
[2019-03-03 19:27] VITALS: BP 101/66
[2019-03-03] MEDS: DONEPEZIL 10 MG TABLET PO SCH (20:58)
[2019-03-03] MEDS: RISPERIDONE 0.5 MG TABLET PO SCH (20:58)
[2019-03-03] MEDS: DIVALPROEX 125 MG CAP.SPRINK PO SCH (20:58)
[2019-03-04] MEDS: HEPARIN 5,000 UNITS/ML, 1ML SQ SCH ×2 (01:03→09:27)
[2019-03-04] MEDS: METOPROLOL SUCCINATE 25 MG TAB.ER.24H PO SCH (05:21)
[2019-03-04] MEDS: LEVOTHYROXINE 200 MCG TABLET PO SCH (05:21)
[2019-03-04 07:12] VITALS: BP 137/79
[2019-03-04] MEDS: INSULIN LISPRO 100 UNITS/ML, PEN SQ-INSULIN SCH (07:30)
[2019-03-04] MEDS: NAMENDA 28 MG PO SCH (09:00)
[2019-03-04] MEDS: ATORVASTATIN 80 MG TABLET PO SCH (09:27)
[2019-03-04] MEDS: LISINOPRIL 20 MG TABLET PO SCH (09:28)
== END 2019-03-04 15:10 | DRG 57 ==
LOC: 3E 21:13
PROVIDERS: ADMIT Psychiatry & Neurology Psychosomatic Medicine; ATTEND Psychiatry & Neurology Psychosomatic Medicine
DX: G30.9 Alzheimer's disease, unspecified (principal); F02.81 Dementia in other diseases classified elsewhere, unspecified severity, with behavioral disturbance; F05 Delirium due to known physiological condition; E03.9 Hypothyroidism, unspecified; E11.9 Type 2 diabetes mellitus without complications; E78.5 Hyperlipidemia, unspecified; I10 Essential (primary) hypertension; Z79.890 Hormone replacement therapy; Z79.899 Other long term (current) drug therapy
CPT/HCPCS: 36415; 71045; 80061; 82962; 90686; J1644; 92522-GN